=== PATIENT | male | born 1940 | race Caucasian/White ===

== ENCOUNTER 2017-01-12 15:04 | Inpatient (IN) | payer MEDICARE ==
[~2017-01-12] VITALS: Ht 172.7 cm; Wt 152.4 kg
--- NOTE | ~2017-01-12 | ECH ---
Transesophageal Echocardiography Report (RAPHAEL) Demographics Patient Name BELLA VARELA Date of Study 01/17/2017 SAQIB Patient Number [id number] Visit Number [id number] Date of 1940 Room Number 313 Accession Number [id number] Gender Male Age 76 year(s) Referring King Rikki Richards MD Belt Cleaner Vannessa Quinn Physician Salima Kim MD [facility] Physician Interpreting King Rikki Richards MD Residue Furnace Operator Physician Supervising Ordering Physician King Rikki Richards MD, MD/P Nurse Stress Car Installations Supervisor Conclusions Summary Informed consent obtained. Transesophageal echocardiogram was done under moderate sedation . The estimated left ventricular ejection fraction is 60%. There is no thrombus in the left atrial appendage. Informed consent was obtained, bubble study was done, there is no evidence for a PFO or ASD. Mild mitral regurgitation by color Doppler. The aortic valve is severely sclerotic with severe stenosis. Moderate atherosclerosis in the descending aorta. Procedure Type of Study RAPHAEL procedure:RAPHAEL SF. Procedure Date Date: 01/17/2017 Start: 11:34 AM Technical Quality: Good visualization Indications:Aortic stenosis. Appropriate Use Criteria: 9 Height: 68 inches Weight: 353 pounds BSA: 2.6 m Rhythm: Atrial fibrillation HR: 71 bpm BP: 136/67 mmHg RAPHAEL Performed By: Polo Cota MD Type of Anesthesia: Moderate sedation Findings Left Atrium There is no thrombus in the left atrial appendage. Informed consent was obtained, bubble study was done, there is no evidence for a PFO or ASD. Mitral Valve Normal mitral valve structure and function. Mild mitral regurgitation by color Doppler. Aortic Valve The aortic valve is severely sclerotic with severe stenosis. Tricuspid Valve Normal tricuspid valve structure and function. Pulmonic Valve The pulmonic valve is not well visualized. Miscellaneous Moderate atherosclerosis in the descending aorta. Signature
--- NOTE | ~2017-01-12 | ECH ---
Transthoracic Echocardiography Report (TTE) Demographics Patient Name BELLA VARELA Date of Study 01/13/2017 SAQIB Patient Number [id number] Visit Number [id number] Date of 1940 Room Number 313 Accession Number [id number] Gender Male Age 76 year(s) Referring Salima Kim MD Cupola Liner [facility] Physician Physician Interpreting Luisa Nur MD Hydrologist Physician Supervising Ordering Physician Salima Kim MD/[employer] Nurse Stress Heel Shaver Conclusions Summary Technically fair exam. The estimated left ventricular ejection fraction is 65%. The left ventricle is upper limits of normal in size . Mild eccentric left ventricular hypertrophy. Mildly dilated right ventricle. Mildly reduced right ventricular function. The left atrium is mildly dilated by LA volume index measurement. Mild-moderate mitral regurgitation by color Doppler. There is severe aortic stenosis by the Continuity Equation. The peak velocity is 4 m/s, the mean gradient is 39 mmHg, and the valve area based on the continuity equation is 1 cm2, stroke volume index is 34 ml/m2.Peak velocity found at apical view. There is mild aortic regurgitation by color Doppler. There is moderate pulmonary hypertension. The pulmonary pressure (RVSP) is 50 mmHg. Procedure Type of Study TTE procedure:Echo Complete SF. Procedure Date Date: 01/13/2017 Start: 10:12 Technical Quality: Fair due to body habitus. Indications:Hypotension, Murmur, Atrial fibrillation and Hypertension. Appropriate Use Criteria: 9 Height: 68 inches Weight: 353 pounds BSA: 2.6 m Rhythm: Atrial fibrillation HR: 53 bpm BP: 137/36 mmHg M-Mode/2D Measurements LV Diastolic Dimension: 5.81 cm LV Systolic Dimension: 3.48 cm LV Septum Diastolic: 1.29 cm LV PW Diastolic: 1.16 cm AO Root Dimension: 2.64 cm Cardiac Output: 4.7 l/min LA Dimension: 4.29 cm Cardiac Index: 1.81 l/min*m RV Diastolic Dimension: 4.13 cm LA volume index: 36 ml/m LVOT: 2.09 cm LVOT VTI: 25.85 cm RV Base: 4.79 cm LV Stroke volume: 88.64 ml RV Mid: 2.9 cm LV Stroke volume index: 34.09 ml/m RV Length: 7.6 cm TAPSE: 1.4 cm TDI-S': 13 cm/s Doppler Measurements AV Peak Velocity: 4 m/s MV Peak E-Wave: 1.16 m/s AV Peak Gradient: 64 mmHg AV Mean Gradient: 39.2 mmHg LVOT Peak Velocity: 1.12 m/s AV Area (Continuity):1.02 cm PV Peak Velocity: 1.45 m/s TR Velocity:3.16 m/s PV Peak Gradient: 8.38 mmHg TR Gradient:39.94 mmHg Estimated PASP: 49.94 mmHg Estimated RAP:10 mmHg Estimated RVSP: 50 mmHg RA Area: 23.28 cm Findings Left Ventricle The left ventricle is upper limits of normal in size . Mild eccentric left ventricular hypertrophy. Diastolic function indeterminate due to patient's arrhythmia. Right Ventricle Mildly dilated right ventricle. Mildly reduced right ventricular function. Left Atrium The left atrium is mildly dilated by LA volume index measurement. Right Atrium The right atrium is mild to moderately dilated. Mitral Valve Normal mitral valve structure and function. Mild-moderate mitral regurgitation by color Doppler. Aortic Valve There is moderate aortic stenosis by the Continuity Equation. The peak velocity is 4 m/s, the mean gradient is 39 mmHg, and the valve area based on the continuity equation is 1 cm2, stroke volume index is 34 ml/m2.Peak velocity found at apical view. There is mild aortic regurgitation by color Doppler. Tricuspid Valve Normal tricuspid valve structure and function. Mild tricuspid regurgitation by color Doppler. There is moderate pulmonary hypertension. The pulmonary pressure (RVSP) is 50 mmHg. Pulmonic Valve The pulmonic valve is not well visualized. Pericardial Effusion No evidence of pericardial effusion. Miscellaneous Visualized portions of the aortic root and ascending aorta appear normal in size. Pleural Effusion No evidence of pleural effusion. Contractility Score LV regional wall motion:(0-Non visualized 1-Normal 2-Hypokinesis 3-Akinesis 4-Dyskinesis 5-Aneurysm) Signature
--- NOTE | 2017-01-13 08:13 | ER ---
ADMIT: 01/12/2017 RM/LOC: 313 [facility] MR#: [id number] [id number] [facility] [address] [place] [id number] BELLA VARELA [address] [place] [address] Emergency Room Report SEX: M AGE: 76 : 1940 DATE: 01/12/2017 CHIEF COMPLAINT: [facility] and [facility]. HISTORY OF PRESENT ILLNESS: The patient is a 76-year-old gentleman, who [facility] with concerns of low blood pressure and high potassium today. He has been living the past couple of months in a senior care in [place], [place]. He was hospitalized in November for reportedly having high potassium, was hypotensive, concerned of sepsis and an upper GI bleed as he was on Coumadin for chronic AFib. From my understanding, he did receive some blood at that time. They stopped the Coumadin. He has been off Coumadin since then. At this time, the patient complains of pain in his lower back and buttocks that is not new for him as he is morbidly obese and is not ambulatory at this time. He denies any headache, chest pain, difficulty breathing, abdominal pain, nausea, vomiting, bloody stools, or numbness, tingling, and weakness in any extremity. I spoke to the patient's daughter on the phone and she states that she was told his blood pressure had been doing okay last night and was a little low this morning before he went to his [facility] with systolics in the 90s. PAST MEDICAL HISTORY: Significant for atrial fibrillation, hypertension, restless leg, depression, GI bleed, high cholesterol, GERD, COPD, and asthma. MEDICATIONS: See nurse's note. He is on digoxin. ALLERGIES: NONE. SOCIAL HISTORY: Does not smoke, drink, or use drugs. Lives in a senior care at this time. PHYSICAL EXAMINATION: VITAL SIGNS: Initial blood pressure is 88/33, heart rate of 67, respirations 23, temp 97, and sats 98% on room air. GENERAL: The patient is alert. He is not in any distress. HEAD: Atraumatic. HEART: Irregular, but not tachycardic. LUNGS: Difficult to auscultate due to his extreme morbid obesity. ABDOMEN: Also likely not tender, but he is morbidly obese and tough to get a good exam. NEUROLOGIC: He has good sensory and motor exam in all 4 extremities. He has 2+ pedal edema in bilateral lower extremities. No signs of infection, but he does have chronic venous stasis changes on his lower extremities. No signs of infection and the patient's groin that we can appreciate, but due to his morbid obesity, we were unable to get access to his penis even for a cath urine. LABORATORY DATA: White count of 17.4 and hemoglobin 10.4. Potassium is 6.4, creatinine 1.8, and magnesium 3.4. Digoxin 1.52. Lactic acid 1.3. Procalcitonin 0.15. INR 1.06. CK 19, CK-MB is less than 0.5. Troponin less than 0.015. ADMIT: 01/12/2017 RM/LOC: 313 [facility] MR#: [id number] [address] [place] [id number] BELLA VARELA [address] [place] [address] Emergency Room Report SEX: M AGE: 76 : 1940 LABORATORY AND X-RAY DATA: Chest x-ray, likely shows nothing acute. No comparison studies. EKG shows atrial fibrillation, rate of 65, no signs of ST- elevation or acute [facility]. EMERGENCY DEPARTMENT COURSE: While the patient was in the ER, we did a sepsis protocol on the patient and he received 30 mL/kg fluid resuscitation. As his MAPs were still low, he was started on Levophed drip in the Emergency Department. We did get a urine sent, but we were unable to obtain a cath urine and we did our best to attempt to get a clean catch. At this point, the results of the urinalysis are pending. We did order vancomycin and Zosyn on the patient. 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 Borrego, who is on for city call, who will be admitting the patient to the ICU. He is admitted in critical condition. IMPRESSION: 1. Sepsis. 2. Urinary tract infection. 3. Hypotension. 4. Hyperkalemia. 5. Morbid obesity. One hour of critical care time was spent on this patient. Alexander Harrison MD/ ila JOB #: [id number] CC: Star Borrego MD, Attending Physician Star Borrego MD, Family Physician
--- NOTE | 2017-01-15 08:54 | HP ---
ADMIT: 01/12/2017 RM/LOC: 313 [facility] MR#: [id number] [id number] [facility] [address] [place], [place] [address] BELLA BESS [address] [place] [address] History and Physical SEX: M AGE: 76 : 1940 DATE OF SERVICE: 01/12/2017 HISTORY OF PRESENT ILLNESS: Mr. Bella Bess is a 76-year-old man with past medical history significant for atrial fibrillation, hypertension, hyperlipidemia, asthma, COPD, GERD, possible dementia, and kidney disease. He states that he was in his usual state of health until about 7 months ago when he started having some restless legs at night. He was admitted to the [place], [place] facility and stayed there for several weeks before being transferred to [place], [place]. He was then seen at the [facility] for a followup appointment with regard to his teeth. He states that he was getting his teeth checked at. [facility]. He states that he was told in [place], [place] that his kidneys had nearly failed him and that his potassium was very high. He states that he thinks this has resolved. He is unsure why he has been so difficult to rehab. He does tell me that in [place] they did not do much with him, and he spent most of his days in the bed. He comes to us from the [facility] today where he was noted to have some hypotension with blood pressures in the 80s/60s as well as hyperkalemia of 7.1 and leukocytosis with WBC of 17. The patient states that he has been feeling his usual self. He does note that over the last 3 days he has had more stiffness and aching in his joints and bones. He also endorses a runny nose. He states that the discharge is clear. He denies any nasal congestion. He denies any shortness of breath or fevers or chills. He does state that he has some abdominal pain that is in the lower part of his abdomen. He states that he has had this for several years and thinks that it started to occur after he had his appendix removed several years ago. He denies any constipation. He does state that he had diarrhea about 3 weeks ago, but this has since resolved. He does have dark tarry stools in the setting of using an iron supplement. He endorses some pain with urination as well as some burning with urination. He states that he did have some foul smell to his urine, but this has since resolved. He denies any blood in his urine. He is not using the restroom more frequently than usual. He states that he does have a wound on his left heel as well as one on his right thigh. He denies any drainage from these areas. He denies any changes in hearing or changes in vision. He is not sure why his potassium is so high again. He tells me that he does have a past medical history of a heart murmur and that he was initially placed on anticoagulation for this. He did have a history of GI bleed and since then, the anticoagulation has been discontinued. In the emergency department, he was noted to have a blood pressure of 88/33 with a pulse of 67 and respiration rate of 23. He was saturating at 98% on room air and had a temperature of 97 degrees Fahrenheit. He was started on Levophed as well as provided some calcium gluconate in the setting of his hyperkalemia. He was also given albuterol nebulizer treatment. He has received approximately 5 L of normal saline in the setting of his hypotension. He is being admitted for severe sepsis in the setting of his blood pressure being low despite adequate fluid resuscitation. PAST MEDICAL HISTORY: 1. Atrial fibrillation. 2. Hypertension. ADMIT: 01/12/2017 RM/LOC: 313 [facility] MR#: [id number] [address] [address] BELLA [address]ESS [address] [place] [address] History and Physical SEX: M AGE: 76 : 1940 3. Hyperlipidemia. 4. Asthma and COPD. 5. GERD. 6. Depression. 7. Heart failure unspecified. 8. Seasonal allergies. 9. Anemia of chronic disease. 10.Recent history of urinary tract infection, treated with Macrobid ending on 01/10/2017. 11.Benign prostate hyperplasia without lower urinary tract symptoms. 12.Restless legs syndrome. 13.Morbid obesity. PAST SURGICAL HISTORY: Significant for appendectomy as well as tonsillectomy several years ago. HOME MEDICATIONS: Include: 1. Atorvastatin 20 mg with a half a tab by mouth 1 time a day. 2. Clonazepam 1 mg by mouth at bedtime for anxiety. 3. Duloxetine 30 mg daily plus an additional 60 mg daily that should make a total of 90 mg of duloxetine daily. 4. Flomax 0.4 mg for BPH. 5. Furosemide 40 mg for heart failure. 6. Digoxin 125 mcg per day for essential hypertension. 7. Multivitamin. 8. [place]-3 fish oil. 9. Pantoprazole 40 mg daily. 10.MiraLAX for constipation. 11.Potassium chloride 10 mEq daily. 12.Ropinirole 1 mg at bedtime for restless legs. 13.Spironolactone 25 mg daily. 14.Bactrim. It appears that he was given this on December 28 through January 02. 15.Coreg 3.125 mg p.o. b.i.d. 16.Clonazepam 0.5 mg twice daily as needed for anxiety. 17.Macrobid with a course completed on the 10 of January. He was taking this it appears January 05 through . 18.Symbicort. 19.Ferrous sulfate 325 mg 3 times a day. 20.[place] 7.5/325 mg 3 times a day as needed for pain. 21.Acetaminophen as needed for pain. 22.Dulcolax suppository as needed for constipation. 23.Milk of magnesia as needed for constipation. 24.Refresh Tears. 25.Lisinopril 5 mg with a half tablet given once a day. 26.Magnesium hydroxide suspension as needed for constipation. 27.Aqua Care to the lower legs. 28.Betadine to left heel blister. ADMIT: 01/12/2017 RM/LOC: 313 [facility] MR#: [id number] [address] [address] BELLA BESS [address] [place] [address] History and Physical SEX: M AGE: 76 : 1940 29.Two liters nasal cannula at night for shortness of breath. 30.Mupirocin ointment plus Preparation H to the posterior thigh ulcer twice daily until healed. 31.Albuterol nebulizer solution as needed for shortness of breath and wheezing. ALLERGIES: NO KNOWN MEDICAL ALLERGIES. PHYSICAL EXAMINATION: VITAL SIGNS: He continues to be afebrile. Heart rate is in the 50s. His blood pressure is now 118/53. Respiration rate of 22. Saturating at 91% on room air. GENERAL: The patient is a morbidly obese, man who appears to be resting quite comfortably in the exam room bed. He is alert and oriented to person and place. HEENT: Normocephalic and atraumatic. Hearing is intact to conversation. Extraocular eye muscles are intact. He does not have any scleral icterus or conjunctival injection. He does have more dry mucous membranes. He has obese neck with excessive skin. LUNGS: Difficult to auscultate but from what can be heard. It does not appear that he has any decreased breath sounds. He does not have any wheezes or rhonchi noted either. HEART: He does have an irregularly irregular heart rhythm. He does have a loud 4/6 holosystolic murmur best heard over the second left intercostal space. Unable to detect JVD. ABDOMEN: Distended with adiposity. He does have a large pannus. He has normoactive bowel sounds. He does have tenderness diffusely. He states that this tenderness is baseline for him. It is not more than usual. There is not one side that is worse than the other. EXTREMITIES: He has evidence of venous stasis over his lower extremities. He does have dry skin over his feet as well as possible onychomycosis and tenia pedis. NEUROLOGIC: His neuro exam is grossly normal. PSYCHIATRIC: His affect is appropriate, and his mood and affect are both congruent with each other. LABORATORY DATA: In our emergency department, he was noted to have a white count of 17.3 with ANC of 14.4, no bands noted. His hemoglobin was 10.4, and his platelet count was 250. His INR was 1.06. His initial lactic acid was 1.3. His procalcitonin was 0.15. His CMP demonstrated a potassium of 6.4, without any EKG changes. Bicarb of 29 and creatinine of 1.8 and calcium of 7.7. His albumin is 2.4. His magnesium was noted to be 3.4. His UA demonstrated haziness to it with 2+ blood as well as negative nitrite and 3+ leukocyte esterase. He was noted to have pyuria with greater than 299 white cells per high-powered field. He also did have 5 red blood cells per high- power field. He did have moderate bacteria. A urine culture is pending at this time as are 2 sets of blood cultures. He had a chest radiograph that demonstrated mildly enlarged heart borders with normal mediastinum. No evidence of pulmonary edema. No focal consolidations or pneumothorax. ADMIT: 01/12/2017 RM/LOC: 313 [facility] MR#: [id number] [address] [address] [address] [place] [place] [address] History and Physical SEX: M AGE: 76 : 1940 ASSESSMENT AND PLAN: Mr. Bella Bess is a 76-year-old man with past medical history significant for heart murmur, atrial fibrillation, history of gastrointestinal bleed, depression, hypertension, hyperlipidemia, asthma, and potentially chronic obstructive pulmonary disease, who presented to our facility in the setting of having leukocytosis as well as renal failure and hyperkalemia. 1. Septic shock. He meets criteria for severe septic shock given that his blood pressure is not responsive to the fluid boluses that have been provided for him. He also does have evidence of end-organ damage with the creatinine. It is difficult to say at this time whether this is due to a bacterial infection. The procalcitonin is 0.15 argues against this, as does the lactic acid of 1.3. However, he will be admitted to the ICU and placed on broad-spectrum antibiotics including vancomycin, Zosyn, as well as Levaquin all to be dosed renally. We will continue the Levophed at this point in time and titrate to maps greater than 65. We will follow up with blood cultures as well as his urine culture. 2. Acute renal failure, on possible chronic kidney disease. It is unclear why he has an elevation in his creatinine. It could be prerenal in nature given the fact that he does have some dry mucous membranes. It also could be related to his low blood pressures and more of a hypotensive prerenal picture. Given the fact that he has had lower blood pressures with 80s/30s prior to admission, it is possible for him to also develop an acute tubular necrosis picture. We will continue to monitor his renal function. With regard to his hyperkalemia, I suspect that this may be related to his renal failure as well as the fact that he has continued to receive his p.o. potassium as well as p.o. magnesium despite their levels being more than adequate. We will continue to hold the magnesium as well potassium at this point in time. He does not have any changes to indicate that he is having EKG changes. He was given albuterol as well as calcium gluconate in the emergency department. He will be placed on telemetry, and this will be continued on admission. He will need to have some sort of excretion of the potassium. He is having good bowel movements as well as urine output. We will continue to monitor. ADMIT: 01/12/2017 RM/LOC: 313 [facility] MR#: [id number] [address] [facility] [address] [place] [id number] BELLA [address] [place], [place] [id number] History and Physical SEX: M AGE: 76 : 1940 3. Abdominal pain. He states that this is chronic for him; however, it is a bit worrisome that it is diffuse. If this becomes worse, then we will consider a CT scan without contrast given his renal dysfunction to further evaluate. There is possibility that given his hypotension that he could have some sort of ischemic bowel process taking place. We will continue to monitor. Other chronic medical conditions will be managed with his regular home outpatient medications. He has been placed on Lovenox 30 mg subcu daily for DVT prophylaxis. This could be adjusted to heparin given his renal dysfunction. This dose will not meet his needs for DVT prophylaxis given his morbid obesity. 4. Respiratory prophylaxis. We will start him on incentive spirometry as well. Park Dobson MD Resident / Star Borrego MD / ila JOB #: [id number] CC: Star Borrego, Attending Physician Star Borrego, Family Physician
--- NOTE | 2017-01-20 16:25 | CO ---
ADMIT: 01/12/2017 RM/LOC: 313 [facility] MR#: [id number] 2620 [facility] [place], [place] [address] BELLA BESS [address] [place] [address] Consultation SEX: M AGE: 76 : 1940 DATE OF CONSULTATION: 01/16/2017 ATTENDING PHYSICIAN: Star Borrego CONSULTING PHYSICIAN: Rikki Cota MD REASON FOR CONSULT: Severe on echocardiogram. Alejandra Camarillo RN, scribing for Dr. Rikki Cota. HISTORY OF PRESENT ILLNESS: Mr. Bess is a pleasant 76-year-old gentleman, I have been asked to see in Cardiology consultation by Dr. Borrego for severe aortic stenosis. He has never been seen through [facility]. He reports that he follows with his medical care through the [facility], and he has never seen a chicken dresser in the past. I do not have his records available to be sure of that. He has history of permanent atrial fibrillation. He had been taken off his anticoagulation in November due to hospitalization with GI bleed. He does have history of hypertension and hyperlipidemia. He had echocardiogram performed during this hospital admission showing ejection fraction of 65% with mild to moderate mitral regurgitation, severe aortic stenosis, moderate pulmonary hypertension with an RVSP of 50 mmHg. The patient was living at the [facility] for about 3 months for rehabilitation for back issues. He then went home to live alone, but ended up in the [facility] per his report for renal failure and hyperkalemia from their he ended up going to usp in [place], [place]. He presented on the January 12 to the [facility] for a dental appointment. They noted that he was weak and had checked some lab work and noted hyperkalemia, and so sent him to [facility] also for hypotension. He ended up being put on a Levophed drip, which has been discontinued due to slight improvement of blood pressure. He unfortunately is very sedentary because of his severe back issues. He denies any syncopal episodes or presyncope. He denies any shortness of breath or chest discomfort and states he is resting comfortably. His blood pressure continues to have episodes where it is running lower anywhere from 80s up to 111 systolic. He is in atrial fibrillation throughout and heart rates are anywhere from 40s up to 80s. PAST MEDICAL HISTORY: Permanent atrial fibrillation, history of GI bleeding, hypertension, hyperlipidemia, gastroesophageal reflux disease, chronic kidney disease, restless legs syndrome, depression, and COPD with asthma. ALLERGIES: NO KNOWN MEDICATION ALLERGIES. MEDICATIONS: Current medications include: 1. Aspirin 81 daily. 2. Colace 100 daily. 3. Cymbalta 60 daily. 4. Iron 325 p.o. t.i.d. 5. Flomax 0.4 at bedtime. 6. Klonopin 0.5 b.i.d. ADMIT: 01/12/2017 RM/LOC: 313 [facility] MR#: [id number] [address] [facility] [address] [facility] [place], [place] [address] [facility] [address] [place] [phone] Consultation SEX: M AGE: 76 : 1940 7. Lanoxin 125 mcg daily. 8. Lipitor 10 at bedtime. 9. Milk of magnesia 10 p.o. daily. 10.MiraLAX 17 g p.o. daily. 11.Pepcid 40 at bedtime. 12.Requip 1 mg p.o. at bedtime. 13.Zyvox 600 p.o. b.i.d. 14.Dulera 2 puffs inhalation b.i.d. 15.Proventil inhalation q.i.d. 16.Lovenox 40 subcu at bedtime. 17.Preparation H ointment as needed. 18.Levophed has been held. 19.He is on Merrem 500 mg IV every 6 hours. FAMILY HISTORY: Noncontributory. SOCIAL HISTORY: Bella reports that he lives alone. He has been recently living in nursing facility and no current tobacco use. No alcohol or drug use. REVIEW OF SYSTEMS: GENERAL: Denies increased fatigue, chills, or fevers. He is edematous. He is unsure of weight status. He was down about 12 pounds from admission. EYES: Denies double vision, blurred vision, cataracts, or glaucoma. ENT: Denies hearing loss or problems with nose, mouth or throat. RESPIRATORY: History of COPD with history of asthma. Denies any hemoptysis. GASTROINTESTINAL: History of gastroesophageal reflux disease. Upper GI bleeding in November requiring discontinuation of anticoagulation. No gallbladder or liver issues that he is aware of. GENITOURINARY: History of chronic kidney disease with acute issues in hospitalization. MUSCULOSKELETAL: History of chronic back pain and osteoarthritis. ENDOCRINE: No history documented of diabetes or thyroid disease. HEMATOLOGY: No history of cancer or bleeding issues. NEUROLOGIC: Restless legs syndrome. Denies stroke or seizure. PSYCHIATRIC: History of depression. Denies anxiety or other mental illness. PHYSICAL EXAMINATION: VITAL SIGNS: Blood pressure 85/40 up to 111/45, heart rate 68, respirations 17, temperature 97.5. Oxygenation 99% on O2. SKIN: [place], warm and dry. EYES: Sclerae clear. No xanthelasmas. ENT: Oral mucosa is pink and moist. No jugular venous distention or carotid bruits. CHEST: Respirations are even and unlabored. LUNGS: Decreased breath sounds bilaterally. HEART: Irregularly irregular, 3/6 systolic ejection murmur. ABDOMEN: Soft and nontender. MUSCULOSKELETAL: Gait is normal. EXTREMITIES: No cyanosis or clubbing. Mild edema bilaterally. Venous stasis ADMIT: 01/12/2017 RM/LOC: 313 [facility] MR#: [id number] [address] [facility] [address] [place], [place] [address] BELLA BESS [address] [place] [address] Consultation SEX: M AGE: 76 : 1940 discoloration changes. PSYCHIATRIC: Alert and oriented. Mood and affect are appropriate. DIAGNOSTIC DATA: Echo on 01/13 showed EF of 65. Mild to moderate MR. Severe , moderate pulmonary hypertension, RVSP of 50 mmHg. Sodium 142, potassium 4.4, BUN 12, creatinine 0.8, glucose 103. White blood cell count 13.0, hemoglobin 10.6, hematocrit 33.7, and platelets 274. ASSESSMENT AND PLAN: 1. Severe aortic stenosis. 2. Permanent atrial fibrillation. 3. Urinary tract infections. 4. History of edema. 5. Acute kidney injury. 6. Hyperkalemia. He is not on anticoagulation due to bleeding ulcer in the past. We will need to re-evaluate this in the future. Also appears to have severe on echo. I would recommend checking transesophageal echocardiogram at this point and if severe would consider aortic valve replacement in the future. Discussed with the patient, procedures, risks and benefits with risks including, but not limited to esophageal damage, hypoxia, reaction to sedation, or aspiration. He states understanding and is agreeable to proceed. I will have him n.p.o. after midnight with plans for transesophageal echo in the morning. severe on transesophageal echo, we will consider aortic valve replacement in the future. His blood pressure is better. He is off pressors. He is being treated for UTI currently per Dr. Borrego. Thank you for the consultation. "I have read and agree with the documentation that has been completed regarding this visit. By signing this record, I attest that the documentation was completed in my physical presence and is an accurate record of the encounter." Alejandra Camarillo RN / Rikki Cota MD / lyndseyl JOB #: [id number] CC: Star Borrego, Attending Physician Star Borrego, Family Physician
--- NOTE | 2017-01-21 07:54 | CO ---
ADMIT: 01/12/2017 RM/LOC: 313 [facility] MR#: [id number] 2620 [facility] [place], [place] [address] NICHOLE BELLA CERRATO [address] [place] [address] Consultation SEX: M AGE: 76 : 1940 DATE OF CONSULTATION: 01/18/2017 ATTENDING PHYSICIAN: Star Borrego CONSULTING PHYSICIAN: Alexander Leung MD CHIEF COMPLAINT: Bilateral upper extremity pain. HISTORY OF PRESENT ILLNESS: This is a 76-year-old male who has been kind of in and out of the hospital here with last couple of weeks, has not really been moving or doing much because that is more recently less than a week ago admitted and sent to the ICU for concern of kidney failure and hypotension with possible urosepsis. He has been on broad-spectrum antibiotics, and he was having kind of generalized support for that. Since then, he has been getting lot of fluid and it sounds like it is gradually getting more and more edema, but has not really been allowing therapy to work with him and now he is complaining over the last week or so that his joints are just kind of generally aching, it is good as kind of having a generalized pain in all of his upper extremities. I was consulted for evaluation. REVIEW OF SYMPTOMS: Otherwise negative. He is little bit confused. PAST MEDICAL HISTORY: He has multiple problems, but no significant per the patient. Problems with his joints in the past. OBJECTIVE: GENERAL: He is awake and alert. He seems to be actually relatively oriented as I talk to him today to time and place. HEART: He has regular rate and rhythm. He has brisk capillary refill on both upper extremities. No labored breathing. EXTREMITIES: Bilateral upper extremities. He has pitting edema and generalized swelling in both hands. He has no pain with short arc motion of any of his joints. No bogginess of any of the joints themselves. He has generalized tenderness throughout his upper extremities and no redness, no real excessive warmth and no signs of drainage or anything in either with those upper extremities and he is pretty stiff with his hand. He has about 2 ADMIT: 01/12/2017 RM/LOC: 313 [facility] MR#: [id number] 26[address] [facility] [place], [place] [address] BELLA VARELA [facility] [address] [place] [address] Consultation SEX: M AGE: 76 : 1940 cm actively from tip to crease distance with attempted sap analyst. X-rays, he has generalized arthritic changes, CMC joints and radiocarpal joints in bilateral wrists. No fractures or dislocations. There are obviously noted that elbow is also just kind of pretty benign and normal. ASSESSMENT: A 76-year-old with bilateral upper extremity pain likely secondary to edema and just lack of motion and stiffness. PLAN: I would recommend having occupational therapy work with at least once to twice a day for motion and some edema help maybe get him into some edema sleeves and is work on that as much as possible, and then I will continue follow along here over the next few days. Alexander Leung MD/ ila JOB #: [id number] CC: Star Borrego, Attending Physician Star Borrego, Family Physician
--- NOTE | 2017-01-23 08:10 | CO ---
ADMIT: 01/12/2017 RM/LOC: 503 [facility] MR#: [id number] 2620 [facility] [place], [place] [address] BELLA VARELA [address] [place] [address] Consultation SEX: M AGE: 76 : 1940 DATE OF CONSULTATION: 01/18/2017 ATTENDING PHYSICIAN: Star Borrego CONSULTING PHYSICIAN: Augustine Escalera MD LOCATION OF SERVICE: [facility]. REASON FOR CONSULTATION: Dr. Borrego has requested our consultation for professor of counseling, coordination of goals, and options of care. HISTORY OF PRESENT ILLNESS: This is a pleasant 76-year-old elderly male with significant medical history and complex past medical needs. He was admitted on 01/12/2017 from the [facility] with hypotension and hyperkalemia with potassium of 7.1, and leukocytosis with a WBC of 17. He reports over the previous three days, he has been more stiff and aching all of his joints and bones. He has been admitted to the intensive care unit and septic shock has been treated. Urine culture was positive for E. coli and Enterococcus faecalis, antibiotic therapy is in place. He is requiring supplemental oxygen, ranges from 2 to 4 L/minute per nasal cannula. Blood cultures on 01/12/2017 have been negative so far. Transthoracic echocardiogram has been obtained revealing ejection fraction of 65% with [id number] mitral regurgitation and severe aortic stenosis with moderate pulmonary hypertension with RVSP of 50 mmHg. He did go forth with a transesophageal echocardiogram on 01/17/2017 revealing ejection fraction of 60%, mild MR, severe aortic stenosis. ARMANDO has been following. There has been discussion concerning aortic valve replacement in the future after his infection is cleared. He does have known atrial fibrillation, however, has been off anticoagulation since 11/2016 secondary to GI bleeding. He is currently getting upper extremity x-rays as he is complaining of acute on chronic pain in his joints as well as abdomen. He does have oxycodone as well as Dilaudid p.r.n. for pain management. He does report pain, fatigue, shortness of breath with movement. He denies nausea, vomiting, or constipation. He reports "my pain is all over in my arms, in the wrists and elbows, and I always have pain in my abdomen." Current functional status reflects a palliative performance score of 40. He spent most of his time in the bed at this time, unable to do any work, needing assistance with his self-care. His intake is reduced. His conscious level has been full. He is alert and oriented x3. Prior to admission, he reports his functional status reflects a palliative performance score of around 50 to 60. Ambulation is reduced. He does use assistive device, unable to do any work, needing assistance with his self-care. His intake has been normal. His conscious level has been full. PAST MEDICAL HISTORY: 1. Atrial fibrillation, off anticoagulation since November secondary to GI bleeding. 2. Gastrointestinal bleed. ADMIT: 01/12/2017 RM/LOC: 503 [facility] MR#: [id number] 2620 [facility] [address] [place] [phone] VARELABELLA [facility] [address] [place] [address] Consultation SEX: M AGE: 76 : 1940 3. Hypertension. 4. Hyperlipidemia. 5. Asthma and COPD. 6. GERD. 7. Depression. 8. Seasonal allergies. 9. Anemia of chronic disease. 10.History of urinary tract infection, treated with Macrobid ending 01/10/2017. 11.Prostate hyperplasia with lower urinary tract symptoms. 12.Restless legs syndrome. 13.Morbid obesity. PAST SURGICAL HISTORY: Appendectomy as well as tonsillectomy. ADVANCED DIRECTIVE AND CODE STATUS: He is a do not resuscitate/do not intubate status. He reports his healthcare [id number] is his daughter, Nati Garner, #[phone] and [phone]. SOCIAL HISTORY: He transferred here from the [facility]. He is from his . He reports his [id number] is Nati Garner, his daughter. He denies alcohol, illicit drug use, or tobacco use. FAMILY HISTORY: Reviewed and noncontributory. CURRENT MEDICATIONS: Include: 1. Dilaudid. Maalox. 1. Lidocaine viscous. 2. Pepcid. 3. OxyIR. 4. Merrem. 5. Zyvox. 6. Flomax. 7. Requip. 8. Lipitor. 9. Lanoxin. 10.MiraLAX. 11.Feosol. 12.Colace. 13.Klonopin. 14.ASA. 15.Dulera. 16.Proventil. 17.Tylenol. 18.Lovenox. ADMIT: 01/12/2017 RM/LOC: 503 [facility] MR#: [id number] 2620 [facility] [address] [place] [phone] VARELABELLA [facility] [address] [place] [address] Consultation SEX: M AGE: 76 : 1940 ALLERGIES: NO KNOWN ALLERGIES. REVIEW OF SYSTEMS: A 10-point review of systems was conducted and was otherwise unremarkable except as noted in HPI and PMH. PHYSICAL EXAMINATION: CONSTITUTIONAL: Weight is 348 pounds. Please see medical record for height and BMI. GENERAL STATUS: This is a pleasant elderly obese male, in pain, he reports to his joints, undergoing x-rays at this time. He is able to participate fully in consultation. He is alert and oriented x3. VITAL SIGNS AND CODE STATUS: His temperature is 96.8, heart rate 76, respiratory rate 16, and blood pressure 127/55. He is on 2 L of oxygen per nasal cannula, oxygenating 93%. HEENT: Head is normocephalic and atraumatic. He is not wearing glasses. Pupils are 4 mm. PERRLA. Hearing is intact bilaterally. Oral mucosa is pink and moist. Dentition is worn. Anicteric sclerae. Conjunctivae are pale. NECK: No lymphadenopathy. Trachea is midline. Supple. No JVD. RESPIRATORY: Respirations are regular without distress. Lung sounds are diminished bilaterally. I do not auscultate any wheezes, crackles, or rhonchi. CARDIOVASCULAR: He does have an irregularly irregular heart rhythm and does have a loud 4/6 murmur. GASTROINTESTINAL: Abdomen is obese, nontender, and nondistended. Positive bowel sounds in all 4 quadrants. EXTREMITIES: Upper and lower extremities are free of cyanosis or clubbing. He does have ecchymosis. INTEGUMENTARY: Skin temperature is warm. Skin is intact. MUSCULOSKELETAL: Free of joint deformities, does have generalized weakness with any movement of his upper extremities, he complains of pain. NEUROLOGIC: Alert and oriented x3. He does follow commands. PSYCHIATRIC: Affect is flat. Insight is intact. He is cooperative to cares. DIAGNOSTIC DATA: Laboratory work reveals sodium 139, potassium 4.3, chloride 108 creatinine 0.7, and albumin 2.4. WBC is 15.3, hemoglobin 10.3, hematocrit 32.0, and platelets 254. Urine culture on 01/12 shows it is positive for E. coli and E. faecalis. Blood cultures on 01/12 have been negative so far. Radiology reports have been reviewed. Please see EMR for details. IMPRESSION AND PLAN: 1. Physical debility. 2. Fatigue. 3. Acute on chronic pain "my arms, wrists, I just hurt all over.". 4. Palliative care. 5. Septic shock. 6. Urine culture positive for Escherichia coli and Enterococcus faecalis. 7. Severe aortic stenosis per transesophageal echocardiogram on 01/18/2017, mild mitral regurgitation. Ejection fraction is 60%. 8. Moderate pulmonary hypertension with RVSP of 50 mmHg. ADMIT: 01/12/2017 RM/LOC: 503 [facility] MR#: [id number] [address] [address] BELLA VARELA [address] [place], [place] [id number] Consultation SEX: M AGE: 76 : 1940 9. Atrial fibrillation, off anticoagulation secondary to GI bleed. 10.Acute hypoxic respiratory failure. 11.DNR/DNI status. At this time, we will continue pain management as medical team directs. X-rays of his joints are pending at this time. He does confirm his do not resuscitate/do not intubate status in our conversation and does report that his daughter, Nati Garner, is his healthcare [id number]. I will review his medical record and if formal document has not been completed, we will encourage him to complete one prior to discharge. I have discussed with Mr. Varela his serious illness and he verbalized his understanding. He is aware that [facility] is following for his newly found severe aortic stenosis and aware that surgical interventions may be offered and Mr. Varela reports "I am thinking about things." His #1 goal at this time is to continue his plan of care in hope to feel improvement soon. He explains quality of life to him includes mental and physical function abilities. We will continue support and discussion concerning quality of life and goals and options of care in the future as his hospitalization continues. I have discussed this consultation with nursing staff. I would like to thank Dr. Borrego for the invitation to participate in Mr. Varela's hospital course. Total consultation time was from 0920 hours to 10 o'clock on 01/18/2017. Greater than 50% of the time was spent at the bedside in counseling and coordination of care. Rohini Santos APRN / Augustine Escalera MD / ila JOB #: [id number] CC: Star Borrego, Attending Physician Star Borrego, Family Physician
[2017-01-27] MEDS ORDERED: FLOMAX DPS0.4 MG PO (13:22)
[2017-01-27] MEDS ORDERED: KLONOPIN DPS0.5 MG PO (13:22)
[2017-01-27] MEDS ORDERED: ASA CHILDREN'S81 MG PO (13:22)
[2017-01-27] MEDS ORDERED: CYMBALTA30 MG PO (13:22)
[2017-01-27] MEDS ORDERED: PEPCID DPS20 MG PO (13:23)
[2017-01-27] MEDS ORDERED: LANOXIN DPS0.125 MG PO (13:23)
[2017-01-27] MEDS ORDERED: REQUIP1 MG PO (13:23)
[2017-01-27] MEDS ORDERED: PROVENTIL2.5 MG/3 M IH (13:24)
[2017-01-27] MEDS ORDERED: SYMBICORT160 MCG/6 IH (13:24)
[2017-01-27] MEDS ORDERED: OXY IR DPS5 MG PO (13:25)
[2017-01-27] MEDS ORDERED: PREPARATION H O60 GM TP (13:25)
[2017-01-27] MEDS ORDERED: LASIX DPS80 MG PO (13:25)
[2017-01-27] MEDS ORDERED: DELTASONE DPS10 MG PO (13:27)
--- NOTE | 2017-02-10 13:15 | DS ---
ADMIT: 01/12/2017 RM/LOC: 503 [facility] MR#: [id number] 2620 [facility] [place], [place] [address] BELLA VARELA [address] [place] [address] General Discharge Summary SEX: M AGE: 76 : 1940 ADMISSION DATE: 01/12/2017 DISCHARGE DATE: 01/26/2017 FINAL DIAGNOSES: 1. Extended-spectrum beta-lactamase urinary tract infection. 2. Chronic systolic congestive heart failure. 3. Severe aortic stenosis. 4. Elevated sedimentation rate. 5. Weakness with possible polymyalgia rheumatica. 6. Bradycardia, resolved. 7. Gallbladder malfunction with abnormal HIDA, but normal appearance on ultrasound. 8. Generalized weakness. 9. Atrial fibrillation. 10.Diffuse malnutrition with edema. 11.Severe joint pains. 12.Iron deficiency anemia. 13.Depression. 14.Fever. REASON FOR ADMISSION: This is a 77-year-old gentleman, who originally was admitted with sepsis-like syndrome and found to have UTI with ESBL. He needed IV pressors and IV fluids for resuscitation, and he had acute kidney injury. He also has everything complicated by his severe morbid obesity. Ultimately, he was resuscitated and able to be transferred to the floor. Then, he had severe upper extremity pain to the point where he said he could not move his arms. Workup revealed some tenderness to the elbows and possibly wrists. After some fluid management and pain medications, he gradually improved. He had been on some Levaquin, so it was a possibility that this was from that. He ultimately was transitioned to meropenem because of his ESBL and was treated with linezolid p.o. because of Enterococcus in his urine as well. Echocardiogram revealed severe aortic stenosis. Cardiology was consulted. He had a CRP and sedimentation rate, both of which were high. His CRP started to trend down. His sedimentation rate continued to be high throughout his time and then gradually trended down toward the end of his hospital stay. His RAPHAEL was not revealing. X-rays of his elbows and wrists showed severe degenerative disease, which was thought to be the cause by Orthopedic consultation. Supportive Care was involved, had a lot of discussions with him regarding his goals of care. He did not want to participate with therapy because of pain. Because of this, he was unable to be transferred to most longterm facilities because he was labeled as not participating in therapy. Therefore, his only option was going back to [facility], so by the time he had been, all his treatments had really been completed. He was doing okay at the day of discharge, so therefore he was set up to be discharged there. DISCHARGE MEDICATIONS: Include: 1. Aspirin 81 mg daily. 2. Cymbalta 30 mg daily. 3. Flomax 0.4 mg daily. ADMIT: 01/12/2017 RM/LOC: 503 [facility] MR#: [id number] 26[address] [facility] [address] [place], [place] [address] [facility] [address] [place] [address] General Discharge Summary SEX: M AGE: 76 : 1940 4. Klonopin 0.5 mg at bedtime. 5. Digoxin 0.0625 mg daily. 6. Ranitidine 300 mg b.i.d. 7. Requip 1 mg at bedtime. 8. Symbicort 160/4.5 two puffs b.i.d. 9. Albuterol inhaler or Proventil neb q.i.d. 10.Preparation H ointment to hemorrhoids b.i.d. 11.OxyIR 5 mg q.4 hours p.r.n. 12.Tylenol 325 mg q.i.d. p.r.n. 13.Milk of magnesia 2 tablespoons daily. 14.MiraLax 17 g in water daily. 15.Lasix 80 mg daily. 16.Prednisone 20 mg a day for 5 days, then 15, then 10, then five, each x5 days and stop. DISCHARGE INSTRUCTIONS: He should have daily weights, PT, and OT, and a regular diet and oxygen to keep his saturations up. He will follow up with his regular primary doctor in 1 to 2 weeks. Star Borrego MD/ ila JOB #: [id number] CC: Star Borrego MD, Attending Physician Star Borrego MD, Family Physician
== END 2017-01-26 15:00 | DRG 871 ==
LOC: ER 15:04 → 3ICU 17:00 → 5MS 17:00 → 3ICU 01-18 07:18 → 5MS 01-18 11:58
PROVIDERS: ADMIT Internal Medicine
PROC: B24BZZ4 Ultrasonography of Heart with Aorta, Transesophageal (ICD-10-PCS; principal; 2017-01-17)
DX: A41.51 Sepsis due to Escherichia coli [E. coli] (principal); R65.21 Severe sepsis with septic shock; N17.9 Acute kidney failure, unspecified; I50.43 Acute on chronic combined systolic (congestive) and diastolic (congestive) heart failure; E46 Unspecified protein-calorie malnutrition; I27.2 Other secondary pulmonary hypertension; Z68.43 Body mass index [BMI] 50.0-59.9, adult; N39.0 Urinary tract infection, site not specified; E87.5 Hyperkalemia; I48.2 Chronic atrial fibrillation; I13.0 Hypertensive heart and chronic kidney disease with heart failure and stage 1 through stage 4 chronic kidney disease, or unspecified chronic kidney disease; B95.2 Enterococcus as the cause of diseases classified elsewhere; L89.620 Pressure ulcer of left heel, unstageable; E66.01 Morbid (severe) obesity due to excess calories; M10.9 Gout, unspecified; B35.1 Tinea unguium; I35.0 Nonrheumatic aortic (valve) stenosis; I34.0 Nonrheumatic mitral (valve) insufficiency; N18.9 Chronic kidney disease, unspecified; M19.90 Unspecified osteoarthritis, unspecified site; D63.1 Anemia in chronic kidney disease; M54.9 Dorsalgia, unspecified; G89.29 Other chronic pain; G25.81 Restless legs syndrome; F32.9 Major depressive disorder, single episode, unspecified; K21.9 Gastro-esophageal reflux disease without esophagitis; J44.9 Chronic obstructive pulmonary disease, unspecified; N40.0 Benign prostatic hyperplasia without lower urinary tract symptoms; Z79.82 Long term (current) use of aspirin; Z66 Do not resuscitate; Z16.12 Extended spectrum beta lactamase (ESBL) resistance